=== PATIENT | female | born 1940 | race Caucasian/White ===

== ENCOUNTER 2020-12-27 11:18 | Outpatient (CLI) | payer MEDICARE, BC, OTHER | END 2020-12-27 11:19 | disposition home or self-care (01) | LOC: CSHRAD 11:18 | PROVIDERS: ATTEND Internal Medicine | DX: M79.645 Pain in left finger(s) (principal); M79.642 Pain in left hand; M18.12 Unilateral primary osteoarthritis of first carpometacarpal joint, left hand ==

== ENCOUNTER 2021-01-09 07:31 | Outpatient (CLI) | payer MEDICARE, BC, OTHER | END 2021-01-09 07:32 | disposition home or self-care (01) | LOC: CSHULT 07:31 | PROVIDERS: ATTEND Internal Medicine | DX: R10.13 Epigastric pain (principal); R10.11 Right upper quadrant pain; K76.0 Fatty (change of) liver, not elsewhere classified | CPT/HCPCS: 93975 ==

== ENCOUNTER 2021-02-06 09:42 | Outpatient (CLI) | payer MEDICARE, BC, OTHER | END 2021-02-06 09:43 | disposition home or self-care (01) | LOC: CSHRAD 09:42 | PROVIDERS: ATTEND Internal Medicine | DX: J06.9 Acute upper respiratory infection, unspecified (principal); Z91.09 Other allergy status, other than to drugs and biological substances; Z87.09 Personal history of other diseases of the respiratory system | CPT/HCPCS: 71046 ==

== ENCOUNTER 2021-07-11 14:54 | Outpatient (CLI) | payer MEDICARE, BC, OTHER | END 2021-07-11 14:55 | disposition home or self-care (01) | LOC: CSHMAMMO 14:54 | PROVIDERS: ATTEND Internal Medicine | DX: Z13.820 Encounter for screening for osteoporosis (principal); M85.851 Other specified disorders of bone density and structure, right thigh; M85.852 Other specified disorders of bone density and structure, left thigh; Z12.31 Encounter for screening mammogram for malignant neoplasm of breast | CPT/HCPCS: 77063; 77067; 77080 ==

== ENCOUNTER 2021-10-23 15:55 | Outpatient (CLI) | payer MEDICARE, BC, OTHER | END 2021-10-23 15:56 | disposition home or self-care (01) | LOC: CSHCT 15:55 | PROVIDERS: ATTEND Internal Medicine | DX: R10.13 Epigastric pain (principal); D64.9 Anemia, unspecified; Z98.84 Bariatric surgery status; K57.30 Diverticulosis of large intestine without perforation or abscess without bleeding; Z90.49 Acquired absence of other specified parts of digestive tract; Z90.710 Acquired absence of both cervix and uterus | CPT/HCPCS: 74176 ==

== ENCOUNTER 2023-01-14 13:34 | Outpatient (CLI) | payer MEDICARE, BC, OTHER | END 2023-01-14 13:35 | disposition home or self-care (01) | LOC: CSHMAMMO 13:34 | PROVIDERS: ATTEND Internal Medicine | DX: Z12.31 Encounter for screening mammogram for malignant neoplasm of breast (principal); R92.1 Mammographic calcification found on diagnostic imaging of breast | CPT/HCPCS: 77063; 77067 ==

== ENCOUNTER 2023-03-04 14:02 | Emergency (ER) | payer MEDICARE, BC, OTHER ==
[2023-03-04 15:28] LABS: Bilirubin Neg (Negative); Blood, Urine Negative (Negative); Clarity Clear (Clear); Glucose, Urine (Dipstick) Normal (Negative); Ketone, Urine Negative (Negative); Leukocyte 100 (Negative); Nitrite Negative (Negative); Protein, Urine (Dipstick) Negative (Neg-Trace); Specific Gravity, Urine 1.015 (1.005-1.030); Urobilinogen Normal mg/dL (Less than 2)
[2023-03-04 15:41] LABS: #Basophils 0.1 10x3/uL (0.0-0.2); #Eosinphils 0.2 10x3/uL (0.0-0.5); #Monocytes 0.9 10x3/uL (0.0-1.1); #Neutrophils 5.3 10x3/uL (1.5-8.4); %Basophils 0.6 % (0.0-2.0); %Eosinophils 2.6 % (0.0-6.0); %Lymphocytes 24.6 % (18.0-47.0); %Monocytes 10.2 % (0.0-10.0); %Neutrophils 61.8 % (40.0-75.0); Hemoglobin 11.1 g/dL (12.0-15.5); Mean Corpuscular HGB CONC 33.1 g/dL (32.0-36.0); Mean Corpuscular Hemoglobin 30.2 pg (27.0-33.0); Mean Corpuscular Volume 91.3 fl (81.6-98.3); Mean Platelet Volume 9.9 fl (7.4-10.4); Platelet Count 268 10x3/uL (150-450); RBC Distribution Width 12.8 % (11.5-14.5); Red Blood Cell (RBC) Count 3.67 10x6/uL (3.90-5.03); White Blood Cell (WBC) Count 8.5 10x3/uL (3.5-10.5)
[2023-03-04 15:42] LABS: Bacteria/HPF None Seen HPF (None Seen); CAUTI Indications for Culture < 2yrs of age; RBC/HPF 0-3 HPF (0-3); Squamous Epithelial 0-3 HPF (0-3); WBC/HPF 0-3 HPF (0-3)
[2023-03-04 15:43] LABS: Urine Culture Reflex Yes Yes
[2023-03-04 16:04] LABS: ALT (SGPT) 20 U/L (8-55); AST (SGOT) 35 U/L (5-34); Albumin 4.5 g/dL (3.4-4.8); Alkaline Phosphatase 63 U/L (40-110); Anion Gap 15 mmol/L (10-20); BUN (Urea Nitrogen) 15 mg/dL (9.8-20.1); Bilirubin, Total 0.3 mg/dL (0.2-1.2); Calc. Creatinine Clearance 0 mL/min (70-130); Calcium 10.3 mg/dL (7.8-10.44); Carbon Dioxide 20 mmol/L (23-31); Chloride 100 mmol/L (98-107); Estimated GFR 37; Globulin 2.9 g/dL (2.4-3.5); Glucose 93 mg/dL (83-110); Potassium 4.6 mmol/L (3.5-5.1); Protein, Total 7.4 g/dL (5.8-8.1); Sodium 130 mmol/L (136-145)
[2023-03-04] MEDS ORDERED: Acetaminophen 500 MG TAB ONE (16:36)
== END 2023-03-04 17:16 | disposition home or self-care (01) ==
LOC: CSHERS 14:02
DX: S09.90XA Unspecified injury of head, initial encounter (principal); W18.30XA Fall on same level, unspecified, initial encounter
CPT/HCPCS: 36415; 70450; 80053; 81001; 84484; 85025; 87086; 93005

== ENCOUNTER 2023-03-06 11:24 | Outpatient (CLI) | payer MEDICARE, BC, OTHER | END 2023-03-06 11:25 | disposition home or self-care (01) | LOC: CSHCT 11:24 | PROVIDERS: ATTEND Internal Medicine | DX: R10.12 Left upper quadrant pain (principal) | CPT/HCPCS: 36415; 74176; 80053; 82150; 83690; 85025 ==

== ENCOUNTER 2024-01-29 16:09 | Emergency (ER) | payer MEDICARE, OTHER ==
[2024-01-29] MEDS ORDERED: Hydrochlorothiazide 25 MG TAB PO SCH (17:15)
[2024-01-29] MEDS ORDERED: Losartan 50 MG TAB PO SCH (17:15)
[2024-01-29 17:28] LABS: #Basophils 0.06 10x3/uL (0.0-0.2); #Eosinphils 0.16 10x3/uL (0.0-0.5); #Monocytes 0.56 10x3/uL (0.0-1.1); #Neutrophils 4.02 10x3/uL (1.5-8.4); %Basophils 0.9 % (0.0-2.0); %Eosinophils 2.3 % (0.0-6.0); %Lymphocytes 30.4 % (18.0-47.0); %Monocytes 8.1 % (0.0-10.0); %Neutrophils 58.2 % (40.0-75.0); Hematocrit 33.4 % (34.9-44.5); Hemoglobin 10.9 g/dL (12.0-15.5); Mean Corpuscular HGB CONC 32.6 g/dL (32.0-36.0); Mean Corpuscular Hemoglobin 30.1 pg (27.0-33.0); Mean Corpuscular Volume 92.3 fl (81.6-98.3); Mean Platelet Volume 9.7 fl (7.4-10.4); Platelet Count 200 10x3/uL (150-450); RBC Distribution Width 12.5 % (11.5-14.5); Red Blood Cell (RBC) Count 3.62 10x6/uL (3.90-5.03); White Blood Cell (WBC) Count 6.9 10x3/uL (3.5-10.5)
[2024-01-29 17:45] LABS: ALT (SGPT) 16 U/L (8-55); AST (SGOT) 25 U/L (5-34); Albumin 3.9 g/dL (3.4-4.8); Alkaline Phosphatase 43 U/L (40-110); Anion Gap 16 mmol/L (10-20); BUN (Urea Nitrogen) 15 mg/dL (9.8-20.1); Bilirubin, Total 0.3 mg/dL (0.2-1.2); Calc. Creatinine Clearance 0 mL/min (70-130); Calcium 9.6 mg/dL (7.8-10.44); Carbon Dioxide 20 mmol/L (23-31); Chloride 107 mmol/L (98-107); Estimated GFR 70; Globulin 3.2 g/dL (2.4-3.5); Glucose 83 mg/dL (83-110); Potassium 3.9 mmol/L (3.5-5.1); Protein, Total 7.1 g/dL (5.8-8.1); Sodium 139 mmol/L (136-145)
[2024-01-29 17:51] LABS: Troponin I Less than 0.010 ng/mL (< 0.028)
== END 2024-01-29 18:18 | disposition home or self-care (01) ==
LOC: CSHERS 16:09
DX: H57.89 Other specified disorders of eye and adnexa (principal); R03.0 Elevated blood-pressure reading, without diagnosis of hypertension
CPT/HCPCS: 36415; 70450; 80053; 84484; 85025; 93005

== ENCOUNTER 2024-02-26 11:42 | Outpatient (CLI) | payer MEDICARE, OTHER | END 2024-02-26 11:43 | disposition home or self-care (01) | LOC: CSHULT 11:42 | PROVIDERS: ATTEND Internal Medicine | DX: H54.60 Unqualified visual loss, one eye, unspecified (principal); I67.89 Other cerebrovascular disease | CPT/HCPCS: 70551; 93880 ==

== ENCOUNTER 2025-08-26 10:25 | Outpatient (CLI) | payer MEDICARE, OTHER | END 2025-08-26 10:26 | disposition home or self-care (01) | LOC: CSHRAD 10:25 | PROVIDERS: ATTEND Internal Medicine | DX: M79.672 Pain in left foot (principal); M79.89 Other specified soft tissue disorders; R93.7 Abnormal findings on diagnostic imaging of other parts of musculoskeletal system ==

== ENCOUNTER 2025-08-26 16:24 | Emergency (ER) | payer MEDICARE, OTHER ==
[2025-08-26] MEDS ORDERED: cefTRIAXone (ROCEPHIN) 1 GM VIAL ONE (17:14)
[2025-08-26 19:12] LABS: #Basophils 0.07 10x3/uL (0.0-0.2); #Eosinophils 0.20 10x3/uL (0.0-0.5); #Monocytes 0.97 10x3/uL (0.0-1.1); #Neutrophils 4.66 10x3/uL (1.5-8.4); %Basophils 0.9 % (0.0-2.0); %Eosinophils 2.5 % (0.0-6.0); %Lymphocytes 24.9 % (18.0-47.0); %Monocytes 12.3 % (0.0-10.0); %Neutrophils 59.1 % (40.0-75.0); Hematocrit 33.8 % (34.9-44.5); Hemoglobin 11.2 g/dL (12.0-15.5); Mean Corpuscular Hemoglobin 30.3 pg (27.0-33.0); Mean Corpuscular Volume 91.4 fL (81.6-98.3); Platelet Count 215 10x3/uL (150-450); Red Blood Cell (RBC) Count 3.70 10x6/uL (3.90-5.03); White Blood Cell (WBC) Count 7.88 10x3/uL (3.5-10.5)
[2025-08-26 19:26] LABS: ALT (SGPT) 15 U/L (Less than 34); AST (SGOT) 36 U/L (11-34); Albumin 4.2 g/dL (3.1-4.5); Alkaline Phosphatase 50 U/L (40-110); Anion Gap 15 mmol/L (10-20); BUN (Urea Nitrogen) 20 mg/dL (9.8-20.1); Bilirubin, Total 0.3 mg/dL (0.3-1.2); Calc. Creatinine Clearance 0 mL/min (70-130); Calcium 9.9 mg/dL (7.8-10.44); Carbon Dioxide 21 mmol/L (23-31); Chloride 105 mmol/L (98-107); Globulin 3.8 g/dL (2.4-3.5); Glucose 80 mg/dL (83-110); Potassium 4.4 mmol/L (3.5-5.1); Sodium 137 mmol/L (136-145)
== END 2025-08-26 21:36 | disposition home or self-care (01) ==
LOC: CSHERS 16:24
DX: S90.852A Superficial foreign body, left foot, initial encounter (principal); I10 Essential (primary) hypertension; W45.8XXA Other foreign body or object entering through skin, initial encounter
CPT/HCPCS: 73701; 80053; 85025; J0696; 96374